=== PATIENT | female | born 1960 | race Caucasian/White ===

== ENCOUNTER → 2018-03-03 | Outpatient (CLI) | payer OTHER ==
[~2018-03-03] MED LIST: APAP500 PO; BENADRYL25 MG PO; CENTRUM SILVER1 EAC4 PO; CITRACAL + D C1 EACH PO; FISH OIL 1,2001 EAC4 PO; FLONASE 0.05%50 MCG NASAL; IBUPROFEN 400400 M1 PO; KEFLEX500 MG PO; L-LYSINE1000 M1 PO; LEXAPRO 10 MG T10 MG PO; LEXAPRO20 MG PO; MULTIVITAMINS PO; NORCO 5-325 TA1 EACH; OSPHENA60 MG PO; VALACYCLOVIR1000 MG PO; VITAMIN D31000 UNI2 PO
== END ==
LOC: M.RAD 03-02 14:30
DX: M85.89 Other specified disorders of bone density and structure, multiple sites (principal)